=== PATIENT | female | born 1970 | race African-American/Black ===

== ENCOUNTER 2018-06-19 20:14 | Emergency (ER) | payer MEDICAID, OTHER ==
[~2018-06-19] VITALS: Ht 170.2 cm; Wt 120.0 kg
[2018-06-19] MEDS ORDERED: KETOROLAC 60MG/2ML VIAL IM STA (20:55)
[2018-06-19 21:44] LABS: BASOPHILS % 0.3 % (0.0-2.0); EOSINOPHILS % 1.1 % (0.0-5.0); HEMATOCRIT. 36.3 % (36.0-48.0); HEMOGLOBIN. 11.7 g/dL (12.0-16.0); LYMPHOCYTES % 13.6 % (20.0-50.0); MEAN CORPUSCULAR HEMOGLOBIN 25.5 pg (28.0-32.0); MEAN CORPUSCULAR VOLUME 79.2 fL (81.0-99.0); MEAN PLATELET VOLUME 8.6 fl (7.4-10.4); MONOCYTES % 4.7 % (2.0-8.0); NEUTROPHILS % 80.3 % (40.0-76.0); PLATELET 302 x1000/uL (130-400); RED BLOOD CELL COUNT 4.59 mill/uL (4.2-5.4)
[2018-06-19 21:49] LABS: CHLORIDE 105 mEq/L (98-107)
[2018-06-19 22:54] LABS: CLARITY URINE CLEAR (CLEAR); COLOR URINE YELLOW (YELLOW); KETONES URINE NEGATIVE (NEGATIVE); LEUKOCYTE ESTERASE URINE TRACE (NEGATIVE); NITRITE URINE NEGATIVE (NEGATIVE); OCCULT BLOOD URINE 1+ (NEGATIVE); PH URINE 5.5 (4.5-8.0); PROTEIN URINE TRACE (NEGATIVE); SPECIFIC GRAVITY URINE 1.023 (1.005-1.030)
[2018-06-19 23:52] VITALS: BP 119/62
[2018-06-20] MEDS ORDERED: HYDROCODONE/ACETAMINOPHEN 5/325MG TABLET PO ONE (00:15)
== END 2018-06-20 00:11 | disposition home or self-care (01) ==
LOC: ER 20:14
DX: N30.00 Acute cystitis without hematuria (principal); J45.909 Unspecified asthma, uncomplicated; I10 Essential (primary) hypertension; F17.200 Nicotine dependence, unspecified, uncomplicated; Z98.890 Other specified postprocedural states
CPT/HCPCS: 36415; 80053; 81003; 81025; 85025; 93005; 96372; 99285; J1885

== ENCOUNTER 2019-02-16 21:24 | Emergency (ER) | payer MEDICAID ==
[~2019-02-16] VITALS: Ht 170.2 cm; Wt 132.0 kg
[2019-02-17] MEDS ORDERED: KETOROLAC 60MG/2ML VIAL IM ONE (00:45)
[2019-02-17] MEDS ORDERED: CYCLOBENZAPRINE 10MG TABLET PO ONE (00:45)
[2019-02-17] MEDS ORDERED: CYCLOBENZAPRINE 10MG TABLET PO NR (01:00)
[2019-02-17 02:58] VITALS: BP 166/71
== END 2019-02-17 02:59 | disposition home or self-care (01) ==
LOC: ER 21:24
DX: G89.29 Other chronic pain (principal); M54.5 Low back pain; F17.210 Nicotine dependence, cigarettes, uncomplicated
CPT/HCPCS: 96372; 99283; J1885

== ENCOUNTER 2019-02-20 21:52 | Emergency (ER) | payer MEDICAID ==
[~2019-02-20] VITALS: Ht 170.2 cm; Wt 132.0 kg
[2019-02-20] MEDS ORDERED: ASPIRIN 81MG TABLET ONE (22:14)
[2019-02-20] MEDS ORDERED: ASPIRIN 81MG TABLET PO ONE (22:15)
[2019-02-21 00:02] LABS: BASOPHILS % 0.3 % (0.0-2.0); EOSINOPHILS % 2.1 % (0.0-5.0); HEMATOCRIT. 34.2 % (36.0-48.0); HEMOGLOBIN. 10.9 g/dL (12.0-16.0); LYMPHOCYTES % 22.6 % (20.0-50.0); MEAN CORPUSCULAR HEMOGLOBIN 24.8 pg (28.0-32.0); MEAN CORPUSCULAR VOLUME 77.5 fL (81.0-99.0); MEAN PLATELET VOLUME 8.4 fl (7.4-10.4); MONOCYTES % 7.3 % (2.0-8.0); NEUTROPHILS % 67.7 % (40.0-76.0); PLATELET 314 x1000/uL (130-400); RED BLOOD CELL COUNT 4.41 mill/uL (4.2-5.4); RED CELL DISTRIBUTION WIDTH 16.7 % (11.6-14.6)
[2019-02-21 00:09] LABS: CHLORIDE 105 mEq/L (98-107)
[2019-02-21] MEDS ORDERED: IPRATROPIUM BROMIDE (0.02%) 0.5MG/2.5ML NEB HHN STA (00:16)
[2019-02-21] MEDS ORDERED: ALBUTEROL (0.083%) 2.5MG/3ML NEB HHN STA (00:16)
[2019-02-21 04:00] VITALS: BP 133/79
== END 2019-02-21 04:31 | disposition home or self-care (01) ==
LOC: ER 22:04
DX: J44.1 Chronic obstructive pulmonary disease with (acute) exacerbation (principal)
CPT/HCPCS: 36415; 71045; 80053; 81025; 82962; 83880; 84484; 85025; 93005; 94640; 99284; J7611; Z7610